=== PATIENT | female | born 1960 | race Caucasian/White ===

== ENCOUNTER → 2020-12-11 09:24 | Outpatient (CLI) | payer OTHER, SELFPAY ==
--- NOTE | 2020-12-11 | DI.US.S_ITS ---
ULTRASOUND OF RIGHT BREAST AND AXILLA: 12/11/2020 CLINICAL: Right axillary thickening. Comparison is made to exams dated: 12/11/2020 mammogram - [facility], 03/28/2020 mammogram, 03/27/2019 mammogram, and 03/22/2018 mammogram - outside location. Real-time ultrasound of the right breast axilla was performed. Clayton scale images of the real-time examination were reviewed. No significant abnormalities were seen sonographically in the right axilla. IMPRESSION: NEGATIVE There is no sonographic evidence of malignancy. There is no abnormality seen in the right axilla to correspond with the palpable abnormality and skin thickening in the right axilla, however, clinical correlation is recommended. A 1 year screening mammogram is recommended. This exam was interpreted at Station ID: [id number]. Electronically Signed By: Jonatan larose/trace:12/11/2020 10:47:12 letter sent: Clinical Evaluation Ultrasound BI-RADS: 1 Negative
--- NOTE | 2020-12-11 09:25 | DI.MG.S_ITS ---
BILATERAL DIGITAL DIAGNOSTIC MAMMOGRAM 3D/2D: 12/11/2020 CLINICAL: Right axillary swelling. Comparison is made to exams dated: 03/28/2020 mammogram, 03/27/2019 mammogram, and 03/22/2018 mammogram - outside location. The tissue of both breasts is extremely dense, which lowers the sensitivity of mammography. There are benign diffuse calcifications in both breasts. No significant masses, calcifications, or other findings are seen in either breast. IMPRESSION: INCOMPLETE: NEEDS ADDITIONAL IMAGING EVALUATION There is no abnormality seen in the right axilla to correspond with the palpable abnormality and skin thickening in the right axilla. Targeted ultrasound is recommended for further evaluation, which will be scheduled immediately following this exam. This exam was interpreted at Station ID: [id number]. NOTE: For mammograms, a report in lay terms will be sent to the patient. Approximately 15% of breast malignancies will not be visualized mammographically. In the management of a palpable breast mass, a negative mammogram must not discourage biopsy of a clinically suspicious lesion. Electronically Signed By: Jonatan larose/trace:12/11/2020 10:44:55 ACR BI-RADS Category 0: Incomplete [id number]
== END ==
PROVIDERS: PCP Physician Assistant; Referring Provider Physician Assistant; Visit Provider Physician Assistant
DX: R92.8 Other abnormal and inconclusive findings on diagnostic imaging of breast (principal); N60.11 Diffuse cystic mastopathy of right breast; M79.89 Other specified soft tissue disorders
CPT/HCPCS: 76882; 77066; G0279

== ENCOUNTER → 2021-12-31 09:18 | Outpatient (CLI) | payer OTHER, SELFPAY ==
--- NOTE | 2021-12-31 | DI.MG.S_ITS ---
BILATERAL DIGITAL SCREENING MAMMOGRAM 3D/2D WITH CAD: 12/31/2021 CLINICAL: Routine screening. Comparison is made to exams dated: 12/11/2020 mammogram - [facility], 03/28/2020 mammogram, and 03/27/2019 mammogram - outside location. The tissue of both breasts is extremely dense, which lowers the sensitivity of mammography. Current study was also evaluated with a Computer Aided Detection (CAD) system. There are benign diffuse calcifications in both breasts. No significant masses, calcifications, or other findings are seen in either breast. There has been no significant interval change. IMPRESSION: BENIGN There is no mammographic evidence of malignancy. A 1 year screening mammogram is recommended. Based on Tyrer-Cuzick model (a risk assessment model), the patient's lifetime risk is 20.5% and her 10 year risk is 8.6%. If a patient has an elevated risk, a more comprehensive evaluation should be considered and/or a referral to a genetic counselor. The [place] [employer], [employer], and NCCN Guidelines advise the consideration of Breast MRI as an adjunct to screening mammography in patients whose Lifetime risk to develop breast cancer is 20% or higher. This exam was interpreted at Station ID: [id number]. NOTE: For mammograms, a report in lay terms will be sent to the patient. Approximately 15% of breast malignancies will not be visualized mammographically. In the management of a palpable breast mass, a negative mammogram must not discourage biopsy of a clinically suspicious lesion. Electronically Signed By: Bobby Dougherty M.D., jr/trace:12/31/2021 12:08:06 letter sent: Normal Exam ACR BI-RADS Category 2: Benign Finding(s) [id number]
== END ==
PROVIDERS: PCP Physician Assistant; Referring Provider Physician Assistant; Visit Provider Physician Assistant
DX: Z12.31 Encounter for screening mammogram for malignant neoplasm of breast (principal)
CPT/HCPCS: 77063; 77067

== ENCOUNTER → 2022-03-09 11:07 | Outpatient (CLI) | payer OTHER, SELFPAY ==
[2022-03-09 20:25] LABS: Cholesterol 205 mg/dL (140-199); HDL Cholesterol 76 mg/dL (40-60); LDL Cholesterol Calculated 115 mg/dL (<100); Triglycerides 68 mg/dL (35-150)
[2022-03-09 20:55] LABS: Add Manual Diff / Slide Review NO; Basophils Absolute Auto 0 /uL (0-100); Basophils Percent Auto 0.7 % (0-2); Eosinophils Absolute Auto 100 /uL (0-450); Eosinophils Percent Auto 1.5 % (2-4); Hematocrit 38.5 % (36-46); Hemoglobin 12.9 g/dL (12.0-16.0); Lymphocytes Absolute Auto 1500 /uL (1100-4500); Lymphocytes Percent Auto 31.8 % (25-40); Mean Corpuscular HGB Conc 33.6 % (30-36); Mean Corpuscular Hemoglobin 29.2 PG (26-34); Mean Corpuscular Volume 86.9 fL (80-100); Monocytes Absolute Auto 400 /uL (0-900); Monocytes Percent Auto 7.8 % (3-14); Neutrophils Absolute Auto 2700 /uL (1500-7000); Neutrophils Percent Auto 58.2 % (50-75); Platelet Count 182 X10^3/uL (150-400); Red Blood Cell Count 4.43 X10^6/uL (4.0-5.2); Red Cell Distribution Width 13.1 % (11.6-14.8); White Blood Cell Count 4.6 X10^3/uL (4.5-11.0)
[2022-03-09 20:58] LABS: TSH w/ Reflex to FT4 1.56 uIU/mL (0.47-4.68)
== END ==
PROVIDERS: PCP Physician Assistant; Visit Provider Nurse Practitioner Adult Health
DX: Z01.419 Encounter for gynecological examination (general) (routine) without abnormal findings (principal)
CPT/HCPCS: 80061; 84443; 85025

== ENCOUNTER → 2022-07-14 09:21 | Outpatient (CLI) | payer OTHER, SELFPAY ==
--- NOTE | 2022-07-14 09:22 | DI.US.S_ITS ---
PROCEDURE: US SOFT TISSUE HEAD AND NECK INDICATIONS: pressure sensation and fullness right anterior neck TECHNIQUE: Real-time scanning was performed of the neck region of interest, with image documentation. Color Doppler was also utilized. COMPARISON: None. FINDINGS: Scanning is performed at the areas of clinical concern within the right neck. At the sites, no abnormalities are seen. No masses, fluid collections, lipomas, or enlarged lymph nodes are seen. No abnormal vascularity. IMPRESSION: Negative ultrasound. Dictated by: Bharat Ellis M.D. on 07/14/2022 at 12:10 Approved by: Bharat Ellis M.D. on 07/14/2022 at 12:11
== END ==
PROVIDERS: PCP Family Medicine; Referring Provider Family Medicine; Visit Provider Family Medicine
DX: M54.2 Cervicalgia (principal); R22.1 Localized swelling, mass and lump, neck
CPT/HCPCS: 76536

== ENCOUNTER 2024-06-06 11:45 | Emergency (ER) | payer OTHER, SELFPAY ==
[2024-06-06 11:49] VITALS: BP 166/98; PULSE 86; RESP 14; TEMP 36.6; O2SAT 100; BMI 22.3
--- NOTE | 2024-06-06 12:09 | ED.LOWEXIN ---
HPI - Extremity Injury (Lower) <Monse Edwards PA-C - Last Filed: 06/06/24 14:00> General Chief Complaint: Extremity Injury, Lower Stated Complaint: poss blood clot in r leg Time Seen by Provider: 06/06/24 12:09 Source: patient Mode of arrival: Ambulatory History of Present Illness HPI Narrative: Ms. Casillas is a pleasant 63-year-old female with a past medical history of migraines and hormone replacement therapy for postmenopausal symptoms presents to the emergency department for right leg discomfort since April with concern for possible blood clot. Patient states that in March of this year she switched from an estrogen gel to a hormone replacement estrogen patch. States that shortly after starting that she is developed discomfort of her right leg. States that discomfort initially started in the right calf but it has since spread up to the right thigh and also down leg. She is a very active woman and attributed it to a possible muscle problem however the discomfort has persisted. She called her OBGYN office who advised she get evaluated. She denies history of DVT, recent prolonged travel, blood thinner use, calf swelling or redness, fevers, chills, chest pain, shortness of breath. Related Data Previous Rx's Medication Instructions Recorded estradiol 0.01% (0.1 mg/gram) See Rx Instructions vaginal DAILY 03/09/22 vaginal cream (Estrace) #42.5 grams triamcinolone acetonide 0.025 % 1 applic topical BID #15 grams 03/09/22 topical cream sumatriptan succinate 50 mg tablet 50 mg PO ONCE #9 tabs 06/30/22 (Imitrex) progesterone micronized 100 mg 100 mg PO QAM #90 caps 02/15/24 capsule estradiol 0.5 mg/0.5 gram (0.1 %) 1 packet topical DAILY #90 ea 03/16/24 transdermal gel packet estradiol 0.05 mg/24 hr semiweekly 1 patch transdermal 2XW #8 ea 03/27/24 transdermal patch Allergies Allergy/AdvReac Type Severity Reaction Status Date / Time ciprofloxacin Allergy Unknown Verified 12/29/22 09:24 Review of Systems <Monse Edwards PA-C - Last Filed: 06/06/24 14:00> Review of Systems ROS Unobtainable: All systems reviewed & are unremarkable except as noted in HPI and below Patient History <Monse Edwards PA-C - Last Filed: 12/18/24 14:00> Medical History Hemorrhoid (~2004) Screening for cardiovascular condition Screening for lipoid disorders Breast cancer screening Irritant contact dermatitis due to other chemical products History of basal cell carcinoma Surgical History Anesthesia History of section (~01/2005) Status post Mohs surgery (~2009) Family History Father Alzheimer's disease Grandfather History of emphysema Grandfather History of heart disease Social History marital status: number of children: 1 household members: spouse and children Smoking Status: Never smoker Smoking Status: Never smoker Exam <Monse Edwards PA-C - Last Filed: 06/06/24 14:00> Narrative Exam Narrative: GENERAL: 63 year old patient appears younger than stated age. Well-developed patient, in no acute distress. HEAD: Atraumatic. Normocephalic. EYES: Extraocular motions intact. No scleral icterus. No injection or drainage. ENT: Nose without bleeding, purulent drainage. NECK: Trachea midline. Cervical ROM intact. CARDIOVASCULAR: Regular rate. Strong DP and PT pulses bilaterally. RESPIRATORY: ?Nonlabored respirations. ?Speaking in clear, full sentences. EXTREMITIES: Subjective tenderness to palpation in right calf, posterior lower leg, mid posterior hamstring. Slight varicose veins but otherwise no swelling, erythema or skin changes. Posterior varicose veins and left leg without tenderness. NEURO: AOx3. ?Clear speech. ?Moves all 4 extremities appropriately. SKIN: No rash or erythema of visible areas Initial Vital Signs Initial Vital Signs: Vital Signs Temperature 97.8 F 06/06/24 11:49 Pulse Rate 86 06/06/24 11:49 Respiratory Rate 14 06/06/24 11:49 Blood Pressure 166/98 H 06/06/24 11:49 Pulse Oximetry 100 06/06/24 11:49 Oxygen Delivery Method Room Air 06/06/24 11:49 <Jefe Wray MD - Last Filed: 06/15/24 12:54> Initial Vital Signs Initial Vital Signs: Vital Signs Temperature 97.8 F 06/06/24 11:49 Pulse Rate 86 06/06/24 11:49 Respiratory Rate 14 06/06/24 11:49 Blood Pressure 166/98 H 06/06/24 11:49 Pulse Oximetry 100 06/06/24 11:49 Oxygen Delivery Method Room Air 06/06/24 11:49 Course <Monse Edwards PA-C - Last Filed: 06/06/24 14:00> Orders Ordered: ED Orders 06/06/24 12:29 US periph venous low extrem rt Stat Vital Signs Vital signs: Vital Signs - 8 hr 06/06/24 11:49 06/06/24 12:28 Temperature 97.8 F Pulse Rate 86 Pulse Rate [Bilateral Dorsalis Pedis] 88 Respiratory Rate 14 Blood Pressure 166/98 H Pulse Oximetry 100 Oxygen Delivery Method Room Air <Jefe Wray MD - Last Filed: 06/15/24 12:54> Orders Ordered: ED Orders 06/06/24 12:29 US periph venous low extrem rt Stat Vital Signs Vital signs: Vital Signs - 8 hr 06/06/24 11:49 06/06/24 12:28 Temperature 97.8 F Pulse Rate 86 Pulse Rate [Bilateral Dorsalis Pedis] 88 Respiratory Rate 14 Blood Pressure 166/98 H Pulse Oximetry 100 Oxygen Delivery Method Room Air MDM - Extremity Injury (Lower) <Monse Edwards PA-C - Last Filed: 06/06/24 14:00> Medical Records Attestation: I reviewed the patient's medical records. Imaging Data US Peripheral Vascular LE Right : Radiologist's Impression: PROCEDURE: US PERIPH VENOUS LOW EXTREM RT INDICATIONS: right leg nontraumatic pain; on HRT; concern for dvt TECHNIQUE: Real-time imaging, as well as color and pulse Doppler interrogation, were performed of the lower extremity deep veins from the inguinal ligament to the popliteal fossa, with documentation of the visualized calf veins. COMPARISON: None. FINDINGS: The common femoral, femoral, popliteal, and the visualized calf veins are normally compressible, and free of intraluminal thrombus. Color and pulse Doppler demonstrate normal phasic intraluminal flow. There is normal augmentation response to distal compression maneuver. IMPRESSION: The No findings of lower extremity deep venous thrombosis. MDM Narrative Medical decision making narrative: 63-year-old female with a past medical history of migraines and hormone replacement therapy for postmenopausal symptoms presents to the emergency department for right leg discomfort since April with concern for possible blood clot. Differential diagnosis includes but is not limited to DVT, varicose veins, muscle strain, etc. On exam patient is in no acute distress, nontoxic appearing, vital signs within normal limits. She is subjective discomfort/tenderness on posterior right leg with no abnormal skin changes. Strong pulses. Given symptoms associated with onset of HRT, we will proceed with ultrasound to rule out DVT. Ultrasound negative for right lower extremity DVT. Patient very reassured. Suspect symptoms related to muscle discomfort versus varicose veins. Recommended rice therapy and ibuprofen/Tylenol if needed for discomfort. Advised follow up with PCP in next 2-3 days. ER return precautions discussed. Patient stable for discharge home. Discharge Plan Departure Patient Disposition: Home Clinical Impression: Leg pain, right Instructions: DI for Leg Pain Activity Restrictions/Additional Instructions: Dear Delia Vinny, Today you were evaluated for discomfort in the right leg. An ultrasound was performed of the veins of your right leg revealing no blood clot. Please rest, use ice/compression/elevation if needed for swelling or discomfort of the leg, and ibuprofen/Tylenol if needed for pain. Please follow up with your primary care doctor within the next 2-3 days for ER follow-up. (If you do not have a PCP you can call [phone]. ?to schedule an appointment with an [facility] Primary Care Provider) IF YOU DEVELOP ANY NEW OR WORSENING SYMPTOMS, RETURN TO THE ER! Please read the attached instructions, they highlight more specific treatments and interventions for you at home. Thank you for letting me participate in your care, Monse Edwards PA-C Prescriptions: No Action progesterone micronized 100 mg capsule 100 mg PO QAM Qty: 90 3RF estradiol 0.5 mg/0.5 gram (0.1 %) gel in packet 1 packet topical DAILY Qty: 90 3RF estradiol 0.05 mg/24 hr patch semiweekly 1 patch transdermal 2XW Qty: 8 3RF Rx Instructions: apply 1 patch for 3 days alternating with 1 patch for 4 days each week for 3 wks per 4-wk cycle estradiol [Estrace] 0.01 % (0.1 mg/gram) cream See Rx Instructions vaginal DAILY Qty: 42.5 1RF Rx Instructions: small amount topically q hs x 14 days, then qod x 14 days, then 3 x weekly vaginally daily. triamcinolone acetonide 0.025 % cream 1 applic topical BID Qty: 15 1RF Rx Instructions: to affected tissue x 7 days sumatriptan succinate [Imitrex] 50 mg tablet 50 mg PO ONCE Qty: 9 0RF Rx Instructions: May repeat dose in 2 hours if migraine still active Referrals: Sujit Stein MD [Primary Care Provider] - Stand Alone Forms: Patient Portal/API/Survey ED Sign-out <Jefe Wray MD - Last Filed: 06/15/24 12:54> Cosign ED Attending Cosignature Attestation: I was immediately available in the department for consultation. ?This documentation has been reviewed and I agree with assessment and plan. Supervised by Jefe Wray MD
[2024-06-06 12:28] VITALS: PULSE 88
--- NOTE | 2024-06-06 12:29 | DI.US.S_ITS ---
PROCEDURE: US PERIPH VENOUS LOW EXTREM RT INDICATIONS: right leg nontraumatic pain; on HRT; concern for dvt TECHNIQUE: Real-time imaging, as well as color and pulse Doppler interrogation, were performed of the lower extremity deep veins from the inguinal ligament to the popliteal fossa, with documentation of the visualized calf veins. COMPARISON: None. FINDINGS: The common femoral, femoral, popliteal, and the visualized calf veins are normally compressible, and free of intraluminal thrombus. Color and pulse Doppler demonstrate normal phasic intraluminal flow. There is normal augmentation response to distal compression maneuver. IMPRESSION: The No findings of lower extremity deep venous thrombosis. Dictated by: Bharat Ellis M.D. on 06/06/2024 at 12:29 Approved by: Bharat Ellis M.D. on 06/06/2024 at 12:29
[2024-06-06 14:08] VITALS: BP 175/81; PULSE 87; RESP 20; TEMP 37; O2SAT 100
== END 2024-06-06 14:09 | disposition home or self-care (01) ==
PROVIDERS: Emergency Provider Physician Assistant; PCP Family Medicine
DX: M79.604 Pain in right leg (principal)
CPT/HCPCS: 93971; 99281; 99283

== ENCOUNTER → 2024-07-06 09:12 | Outpatient (CLI) | payer OTHER, SELFPAY ==
--- NOTE | 2024-07-06 09:13 | DI.MG.S_ITS ---
BILATERAL DIGITAL SCREENING MAMMOGRAM 3D/2D WITH CAD: 07/06/2024 CLINICAL: Routine screening. Comparison is made to exams dated: 12/31/2021 mammogram, 12/11/2020 mammogram - [facility], and 03/28/2020 mammogram - outside location. The breasts are extremely dense, which lowers the sensitivity of mammography (category d />75% glandular tissue). Current study was also evaluated with a Computer Aided Detection (CAD) system. There are benign diffuse calcifications in both breasts. No significant masses, calcifications, or other findings are seen in either breast. There has been no significant interval change. IMPRESSION: BENIGN There is no mammographic evidence of malignancy. A 1 year screening mammogram is recommended. Based on the Tyrer Cuzick model (a risk assessment model) the patient's lifetime risk is 19.6% and her 10 year risk is 8.8%. According to the ACR, ACS, and NCCN guidelines, an annual breast MRI exam along with mammogram is recommended if the patient's lifetime risk is 20% or greater. This exam was interpreted at Station ID: [id number]. NOTE: For mammograms, a report in lay terms will be sent to the patient. Approximately 15% of breast malignancies will not be visualized mammographically. In the management of a palpable breast mass, a negative mammogram must not discourage biopsy of a clinically suspicious lesion. Electronically Signed By: Robert lantigua/trace:07/06/2024 14:14:17 letter sent: Normal Exam ACR BI-RADS Category 2: Benign
== END ==
PROVIDERS: PCP Family Medicine; Referring Provider Family Medicine; Visit Provider Family Medicine
DX: Z12.31 Encounter for screening mammogram for malignant neoplasm of breast (principal); R92.343 Mammographic extreme density, bilateral breasts
CPT/HCPCS: 77063; 77067

== ENCOUNTER → 2024-08-03 14:38 | Outpatient (CLI) | payer OTHER, SELFPAY ==
--- NOTE | 2024-08-03 14:39 | DI.RAD.S_ITS ---
PROCEDURE: XR DEXA AXIAL SKELETON INDICATIONS: Screen for osteoporosis COMPARISON: None. FINDINGS: Lumbar Spine: Bone mineral density 0.797 g/cm2, T score -2.3, osteopenia. Left Femoral Neck: Bone mineral density 0.711 g/cm2, T score -1.2, osteopenia. Left Hip: Bone mineral density 0.860 g/cm2, T score -0.7, normal. Fracture Risk Calculation (when applicable): 10-year fracture risk of a major osteoporotic fracture 7.2 percent and of a hip fracture 0.6 percent. (T score greater or equal to -1.0 to: NORMAL) (T score from -1.1 to -2.4: OSTEOPENIA) (T score less than or equal to -2.5: OSTEOPOROSIS) IMPRESSION: Osteopenia elevates the patient's 10 year fracture risk as described. Follow-up guidelines as follows: Osteoporosis: Consider a repeat DEXA and Vertebral Fracture Assessment (VFA) exam in 2 years or sooner if medically necessary, to reassess this patient's status. Osteopenia: Consider a repeat DEXA in 2-3 years to reassess this patient's status, or if there is a new clinical indication. Normal: Consider a repeat DEXA in 5 years or sooner, or if there is a new clinical indication. All treatment decisions require clinical judgment and consideration of individual patient factors, including patient preferences, comorbidities, previous drug use, risk factors not captured in the FRAX model (e.g., frailty, falls, vitamin D deficiency, increased bone turnover, interval significant decline in bone density ) and possible under- or over-estimation of fracture risk by FRAX. In addition, the NOF Guide recommends that FDA-approved medical therapies be considered in postmenopausal women and men age >= 50 years with a: * Hip or vertebral (clinical or morphometric) fracture * T-score of <=-2.5 at the spine or hip * Ten-year fracture probability by FRAX of >= 3% for hip fracture or >=20% for major osteoporotic fracture. Dictated by: Celsa Vega M.D. on 08/03/2024 at 16:47 Approved by: Celsa Vega M.D. on 08/03/2024 at 16:48
== END ==
LOC: RAD 14:39
PROVIDERS: PCP Family Medicine; Referring Provider Specialist; Visit Provider Specialist
DX: Z82.62 Family history of osteoporosis (principal); M85.89 Other specified disorders of bone density and structure, multiple sites
CPT/HCPCS: 77080

== ENCOUNTER → 2024-08-24 10:42 | Outpatient (CLI) | payer OTHER, SELFPAY ==
--- NOTE | 2024-08-24 10:43 | DI.MRI.S_ITS ---
MR breast BI wo/w con: 08/24/2024. BI-RADS: 1 CLINICAL: 64-year old female for bilateral diagnostic breast MRI. Tyrer-Cuzick lifetime risk of 7.4%. No personal or first-degree family history of breast cancer. PRIOR EXAMS 07/06/2024, 12/31/2021, 12/11/2020. MRI TECHNIQUE Bilateral breast MRI was performed on a 1.5 Tiffani magnet using a dedicated breast coil with mild compression. Axial T1 and T2 STIR sequences were obtained. Dynamic contrast enhanced VIBRANT fat-suppressed sequences were obtained. Delayed sagittal high resolution or sagittal reconstructed isotropic sequence was also obtained. Subtraction images and maximum intensity projection images were obtained. The study was evaluated using [employer] software. Gadavist was injected intravenously: mL. IV Contrast: 5 ml ProHance. FIBROGLANDULAR TISSUE Bilateral: D. Extreme fibroglandular tissue. BACKGROUND PARENCHYMAL ENHANCEMENT Bilateral: Mild symmetrical background parenchymal enhancement. BREAST FINDINGS Bilateral: No suspicious mass, suspicious non-mass enhancement, or other concerning finding identified. CHEST FINDINGS Visualized portions of the chest appear unremarkable. ABDOMEN FINDINGS Visualized portions of the upper abdomen appear unremarkable. IMPRESSION: * No evidence of malignancy. RECOMMENDATIONS Bilateral * Annual screening mammography in one year. OVERALL ASSESSMENT CATEGORY BI-RADS-1: Negative. ELECTRONICALLY SIGNED: Henry Kenney M.D. on 08/25/2024 at 04:28:21 PM PT Interpreting Station ID: [id number]
== END ==
PROVIDERS: PCP Family Medicine; Referring Provider Family Medicine; Visit Provider Family Medicine
DX: N60.11 Diffuse cystic mastopathy of right breast (principal); Z12.39 Encounter for other screening for malignant neoplasm of breast
CPT/HCPCS: 77049; A9579

== ENCOUNTER → 2024-10-08 09:07 | Outpatient (CLI) | payer OTHER, SELFPAY ==
--- NOTE | 2024-10-08 09:08 | DI.US.S_ITS ---
PROCEDURE: US VENOUS INSUFFICIENCY BILAT INDICATIONS: bilateral posterior knee discomfort: varicose veins vs. chidi TECHNIQUE: Real time scanning was performed of the lower extremity venous system, with imaging documentation, as well as Color and pulse Doppler interrogation. COMPARISON: None. FINDINGS: RIGHT LOWER EXTREMITY: The deep veins are normally compressible, and free of intraluminal thrombus. Color and pulse Doppler demonstrate normal intravascular flow. There is normal augmentation with distal compression maneuver. Some deep venous reflux noted common femoral vein. Greater saphenous vein (GSV): Normally 4 mm or less in diameter, with any reflux less than 0.5 seconds. Saphenofemoral junction (SFJ): 8 mm. Reflux 3.2 seconds Proximal GSV: 3 mm. Reflux 0.8 seconds. Mid GSV: 2 mm. No reflux. Distal GSV: 2 mm. No reflux. Calf GSV: 1 mm, no reflux. Anterior accessory GSV (AAGSV): Competent Small saphenous vein (SSV): Posterior calf, draining into popliteal vein. Posterior calf: 1 mm. No reflux. Vein of Giacomini (posterior thigh connection between GSV and SSV): Anatomic variant not seen. Tool Sharpener veins: Calf: Location proximal, diameter 2 mm. 1 second reflux. LEFT LOWER EXTREMITY: The deep veins are normally compressible, and free of intraluminal thrombus. Color and pulse Doppler demonstrate normal intravascular flow. There is normal augmentation with distal compression maneuver. Some deep venous reflux noted common femoral vein. Greater saphenous vein (GSV): Normally 4 mm or less in diameter, with any reflux less than 0.5 seconds. Saphenofemoral junction (SFJ): 7 mm. Reflux 0.9 seconds. Proximal GSV: 3 mm. Reflux 1.6 seconds Mid GSV: 2 mm. No reflux. Distal GSV: 3 mm. Reflux 0.9 seconds. Calf GSV: 3 mm. No reflux. Anterior accessory GSV (AAGSV): Anatomic variant not present across anterior thigh. Posterior accessory GSV: 0.6 seconds of reflux 2 mm in diameter. Small saphenous vein (SSV): Posterior calf, draining into popliteal vein. Posterior calf: 3 mm. No reflux. Vein of Giacomini (posterior thigh connection between GSV and SSV): Anatomic variant not seen. Tool Sharpener veins: None visualized IMPRESSION: 1. No evidence of deep venous thrombosis 2. Focal saphenous insufficiency in the right lower extremity saphenofemoral junction and proximal thigh greater saphenous vein. 3. Focal saphenous insufficiency left lower extremity saphenofemoral junction and proximal thigh greater saphenous vein. 4. Some admin secretary incompetence right calf and posterior accessory greater saphenous incompetence left distal thigh as above. Dictated by: Caden Smith M.D. on 10/08/2024 at 14:27 Approved by: Caden Smith M.D. on 10/08/2024 at 14:40
== END ==
LOC: US 09:07
PROVIDERS: PCP Family Medicine; Referring Provider Family Medicine; Visit Provider Family Medicine
DX: M25.569 Pain in unspecified knee; I83.93 Asymptomatic varicose veins of bilateral lower extremities
CPT/HCPCS: 93970

== ENCOUNTER → 2024-10-25 10:31 | Outpatient (CLI) | payer OTHER, SELFPAY ==
[2024-10-25 19:39] LABS: Add Manual Diff / Slide Review NO; Basophils Absolute Auto 0 /uL (0-100); Basophils Percent Auto 0.6 % (0-2); Eosinophils Absolute Auto 100 /uL (0-450); Eosinophils Percent Auto 1.4 % (2-4); Hematocrit 42.1 % (36-46); Hemoglobin 14.1 g/dL (12.0-16.0); Lymphocytes Absolute Auto 1700 /uL (1100-4500); Lymphocytes Percent Auto 31.8 % (25-40); Mean Corpuscular HGB Conc 33.5 % (30-36); Mean Corpuscular Volume 89.5 fL (80-100); Monocytes Absolute Auto 400 /uL (0-900); Monocytes Percent Auto 6.7 % (3-14); Neutrophils Absolute Auto 3100 /uL (1500-7000); Neutrophils Percent Auto 59.5 % (50-75); Platelet Count 176 X10^3/uL (150-400); White Blood Cell Count 5.2 X10^3/uL (4.5-11.0)
[2024-10-25 19:45] LABS: Alanine Aminotransferase 25 IU/L (<35); Albumin 4.6 g/dL (3.5-5.0); Albumin Globulin Ratio 1.6 (1.0-2.8); Alkaline Phosphatase 54 U/L (38-126); Aspartate Aminotransferase 37 IU/L (14-36); BUN Creatinine Ratio 30.4 (6-22); Bilirubin Total 1.2 mg/dL (0.2-1.3); Blood Urea Nitrogen 21 mg/dL (7-17); Calcium 9.3 mg/dL (8.4-10.2); Carbon Dioxide 28 mmol/L (22-32); Chloride 104 mmol/L (98-107); Cholesterol 228 mg/dL (140-199); Estimated Glomerular Filt Rate > 60 mL/min (>60); Globulin 2.8 g/dL (1.7-4.1); Glucose 96 mg/dL (70-99); HDL Cholesterol 78 mg/dL (40-60); HEMOLYSIS < 15 (0-50); LDL Cholesterol Calculated 135 mg/dL (<100); Potassium 4.2 mmol/L (3.4-5.1); Sodium 138 mmol/L (137-145); Total Protein 7.4 g/dL (6.3-8.2); Triglycerides 76 mg/dL (35-150)
[2024-10-25 20:02] LABS: Vitamin D 25 Hydroxy (D3) 50.8 ng/mL (30.0-100.0)
== END ==
PROVIDERS: PCP Family Medicine; Visit Provider Family Medicine
DX: Z13.6 Encounter for screening for cardiovascular disorders (principal); Z13.0 Encounter for screening for diseases of the blood and blood-forming organs and certain disorders involving the immune mechanism; Z13.1 Encounter for screening for diabetes mellitus; Z13.29 Encounter for screening for other suspected endocrine disorder; E55.9 Vitamin D deficiency, unspecified
CPT/HCPCS: 80053; 80061; 82306; 84443; 85025